=== PATIENT | female | born 1975 | race African-American/Black ===

== ENCOUNTER 2020-03-14 17:36 | Emergency (ER) | payer MEDICARE, MEDICAID ==
[~2020-03-14] VITALS: Ht 177.8 cm; Wt 91.0 kg
[2020-03-14] MEDS ORDERED: LORazepam 2 MG/ML, 1ML ONE ×2 (17:54→18:52)
[2020-03-14] MEDS ORDERED: LORazepam 2 MG/ML, 1ML IVPush ONE ×2 (18:00→19:30)
[2020-03-14] MEDS ORDERED: PLEASE ENTER ALLERGIES MC SCH (18:00)
[2020-03-14] MEDS ORDERED: SODIUM CHLORIDE FLUSH 10ML SYR IVF ONE (18:00)
[2020-03-14 18:03] LABS: BASOPHILS # (AUTO) 0.03 x10^3/uL (0-0.1); BASOPHILS % (AUTO) 0 % (0-1); EOSINOPHILS # (AUTO) 0.12 x10^3/uL (0-0.4); EOSINOPHILS % (AUTO) 2 % (1-7); LYMPHOCYTES # (AUTO) 2.63 x10^3/uL (1-3.4); LYMPHOCYTES % (AUTO) 34 % (22-44); MD NO; MEAN CORPUSCULAR HGB CONC 32.7 g/dL (32.4-35.8); MEAN CORPUSCULAR VOLUME 97.7 fL (80-100); MEAN PLATELET VOLUME 7.6 fL (7.4-10.4); MONOCYTES # (AUTO) 0.83 x10^3/uL (0.2-0.8); MONOCYTES % (AUTO) 11 % (2-9); NEUTROPHILS # (AUTO) 4.21 x10^3/uL (1.8-6.8); NEUTROPHILS % (AUTO) 54 % (42-75); PLATELET COUNT 312 x10^3/uL (130-400); RED BLOOD COUNT 4.24 x10^6/uL (3.82-5.3); RED CELL DISTRIBUTION WIDTH 15.8 % (9.6-15.2)
--- NOTE | 2020-03-14 18:11 | NUR ---
PT UPRIGHT ON BED. SEIZURE PRECAUTIONS IN PLACE. NOT RESPONDING TO STAFF QUESTIONS OR COMMANDS BUT HAS PURPOSEFUL MOVEMENT. WILL CONTINUE TO MONITOR.
--- NOTE | 2020-03-14 18:40 | NUR ---
PT TO CT
--- NOTE | 2020-03-14 18:50 | NUR ---
REPORT TO NOC KIM HAQUE.
--- NOTE | 2020-03-14 18:50 | NUR ---
PT IN CT, REPORT FROM JYOTSNA RN AND DONALD RN.
--- NOTE | 2020-03-14 19:06 | NUR ---
FIRST ENCOUTER WITH PT: THIS RN TO CT ROOM AFTER CT CALLED TO MEDICATE PT BECUASE SHE WAS UNABLE TO LAY DOWN OR HOLD STILL FOR CT. PT FOUND TO BE SITTING UPRIGHT, EYE OPEN, RESPIRATIONS EVEN AND UNLABORED ON CT IMAGING BED. PT ABLE TO TELL THIS RN HER NAME AND THAT HER IV HURTS WHEN PT WAS MEDICATED. UNABLE TO OBTAIN CT AT THIS TIME BECAUSE PT REFUSES TO LAY DOWN, ERP AWARE. PT BACK TO ROOM AT THIS TIME AND IS NOW LAYING IN GURNEY WITH EYES CLOSED. VSS.
--- NOTE | 2020-03-14 19:28 | NUR ---
PT PULLED O2 MONITOR OFF FINGER. PT EDUCATED THAT SHE NEEDS TO KEEP IT ON AND PT GIVEN CHOICE OF WHICH FINGER SHE WANTS IT ON. PT SHRUGGED IN RESPONSE. ASKED PT IF SHE NEEDED TO PEE, PT SHOOK HEAD NO.
[2020-03-14 19:45] LABS: ALANINE AMINOTRANSFERASE 47 U/L (12-78); ALBUMIN 4.1 g/dL (3.4-5.0); ANION GAP 20 mmol/L (5-15); CALCIUM 9.1 mg/dL (8.5-10.1); CHLORIDE 104 mmol/L (98-107); SALICYLATE LEVEL 2.2 mg/dL (2.8-20.0)
[2020-03-14 19:47] LABS: ALKALINE PHOSPHATASE 73 U/L (45-117); BILIRUBIN,TOTAL 0.5 mg/dL (0.2-1.0); CREATININE 1.67 mg/dL (0.55-1.02); TOTAL PROTEIN 7.8 g/dL (6.4-8.2)
--- NOTE | 2020-03-14 20:00 | NUR ---
CT CALLED AT [facility] TO INFORM THEM THAT PT WAS SLEEPING AND TO TRY FOR IMAGING AGAIN.
--- NOTE | 2020-03-14 20:15 | NUR ---
CT CALLED AGAIN, STATES THEY WILL COME FOR PT NOW TO TRY FOR IMAGING AGAIN.
--- NOTE | 2020-03-14 20:32 | NUR ---
PT BACK FROM CT, PER UR COORDINATOR PT UNABLE TO HOLD STILL FOR SCAN. PT BACK TO ROOM AND OUT OF BED TO "I HAVE TO PEE." PT ABLE TO USE BEDSIDE COMMODE WITHOUT ASSISTANCE. PT STOOD UP OUT OF BED, AND BEGAN LOOK THROUGH HER PURSE TO FIND HER CLOTHES WHICH HAD BEEN REMOVED UPON ARRIVAL. PT TOLD SHE NEEDED TO SIT DOWN TO URINATE, PT COOPERATIVE. PT TRIED TO DRESS SELF TO LEAVE, EDUCATED SHE NEEDS TO BE ASSESED. PT STATES SHE'S IN THE HOSPITAL AND THAT THE YEAR IS 2019. SHE SAYS "I WAS DRIVING AND THEY BROUGHT ME HERE." PT EDUCATED THAT SHE HAD A SZ, DENIES HX OF SZ.
[2020-03-14 21:06] LABS: AMPHETAMINE SCREEN, URINE Negative (Negative); BARBITURATE SCREEN, URINE Negative (Negative); BENZODIAZEPINE SCREEN, URINE Positive (Negative); CANNABINOID SCREEN, URINE Positive (Negative); COCAINE SCREEN, URINE Negative (Negative); METHADONE SCREEN, URINE Negative (Negative); OPIATE SCREEN, URINE Negative (Negative)
--- NOTE | 2020-03-14 21:10 | NUR ---
CT CALLED AGAIN, DID NOT GIVE AN ESTIMATED TIME FOR PT SCAN. PT FOUND WONDERING THE HALLS WITH STEADY GAIT. PT EDUCATED AGAIN SHE NEEDS TO REMAIN IN BED WITH MONITORS ATTACHED. PT COMPLIANT, PT CONNECTED TO CARDIAC, BP AND O2 MONITORS. BEDRAILS UP WITH SZ PADS IN PLACE, CALL LIGHT IN REACH.
--- NOTE | 2020-03-14 21:24 | NUR ---
[facility] CALLED IN ATTEMPT TO LOCATE PT'S CAR. PT ON PHONE WITH SIGNIFICANT OTHER.
--- NOTE | 2020-03-14 21:28 | NUR ---
PT TOLD THIS RN SHE TAKES HER OXYCODONE PRESCRIBED FOR CHRONIC LOWER BACK PAIN. STATES SHE WAS DRIVING TO THE STORE TODAY, DENIES ETOH AND DRUG USE.
--- NOTE | 2020-03-14 21:36 | NUR ---
PT TO AND FROM CT. SCAN SUCCESSFUL. PT UP TO COMMODE WITHOUT ASSISTANCE NOW.
--- NOTE | 2020-03-14 21:48 | NUR ---
PT WITH SITTER FOR CONTINUOUS MONITORING THAT PT DOES NOT GET OUT OF BED. SHAYLAN, PT ON PHONE, SITTING IN [facility].
--- NOTE | 2020-03-14 22:17 | NUR ---
ERP BACK TO BEDSIDE TO REASSESS AND UPDATE PT ON POC.
[2020-03-14 22:49] VITALS: BP 145/87
== END 2020-03-14 22:51 ==
LOC: ED 22:45
DX: R56.9 Unspecified convulsions (principal); R32 Unspecified urinary incontinence; R00.0 Tachycardia, unspecified; R41.82 Altered mental status, unspecified; R06.89 Other abnormalities of breathing; R51 Headache
CPT/HCPCS: 36415; 70450; 71045; 80053; 80307; 82140; 85025; 96374; 96376; 99285; J2060